=== PATIENT | female | born 1990 | race Caucasian/White ===

== ENCOUNTER → 2021-06-02 | Outpatient (CLI) | payer MEDICAID ==
[~2021-06-02] MED LIST: CEPHALEXIN500 M1 PO; COLACE 100100 MG/CAP PO; DOXYCYCLINE 10100 MG PO; MIRENA52 MG IU; NORCO 325 MG-51 TAB PO; NUVARING VAG RING VG; PRENATAL1 TA1 PO; YAZ 28 3 MG-0.01 TAB PO
== END ==
LOC: COL.RAD 05-26 13:15
DX: E05.90 Thyrotoxicosis, unspecified without thyrotoxic crisis or storm (principal)
CPT/HCPCS: A9516